=== PATIENT | female | born 1980 | race Caucasian/White ===

== ENCOUNTER 2017-04-07 17:48 | Emergency (ER) | payer MEDICARE, OTHER ==
[~2017-04-07 17:48] MED LIST: ADVAIR 2501 DISK W/D PO; ALBUTEROL17 GM NEB; AMITRYPTYLINE PO; BACTRIM DS TABL1 TAB PO; BACTROBAN22 GM EXT; BENTYL20 MG PO; CLEOCIN150 M1 PO; DOXYCYCLINE PO; FLAGYL PO; KEFLEX500 M1 PO; KLONOPIN1 MG PO; LORTAB 7.5-5001 TAB PO; MEDROL PO; MORPHINE PO; MS CONTIN15 M1 PO; NEURONTIN300 MG PO; NORCO 10-325 TA1 TAB PO; NORCO1 TAB 10/3; NORFLEX100 M1 PO; NORVASC PO; PHENERGAN PO; PROVENTAL INHALER HHN; PROZAC PO; PYRIDIUM PO; TYLENOL #3 PO; VICODIN 5/500 T1 TAB PO; VOLTAREN75 MG PO; WELLBUTRIN75 M1 PO; ZITHROMAX PO
[2017-04-08] MEDS ORDERED: KLONOPIN1 MG PO (03:46)
[2017-04-08] MEDS ORDERED: ALBUTEROL17 GM INH (03:47)
[2017-04-08] MEDS ORDERED: AMLODIPINE BESYL5 MG PO (03:47)
[2017-04-08] MEDS ORDERED: WELLBUTRIN PO (03:47)
[2017-04-08] MEDS ORDERED: LORTAB 5-325 M1 EACH PO (05:38)
== END 2017-04-07 18:39 | disposition left against medical advice (07) ==
LOC: SED 17:48
DX: Z53.21 Procedure and treatment not carried out due to patient leaving prior to being seen by health care provider (principal)

== ENCOUNTER 2017-04-08 03:38 | Emergency (ER) | payer MEDICARE, OTHER ==
[~2017-04-08] VITALS: Ht 167.6 cm; Wt 63.5 kg
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
[2017-04-08] MEDS ORDERED: KLONOPIN1 MG PO (03:46)
[2017-04-08] MEDS ORDERED: WELLBUTRIN PO (03:47)
[2017-04-08] MEDS ORDERED: ALBUTEROL17 GM INH (03:47)
[2017-04-08] MEDS ORDERED: AMLODIPINE BESYL5 MG PO (03:47)
[2017-04-08] MEDS ORDERED: LORTAB 5-325 M1 EACH PO (05:38)
== END 2017-04-08 05:38 | disposition home or self-care (01) ==
LOC: SED 03:38
DX: S92.354A Nondisplaced fracture of fifth metatarsal bone, right foot, initial encounter for closed fracture (principal); S30.0XXA Contusion of lower back and pelvis, initial encounter; F17.200 Nicotine dependence, unspecified, uncomplicated; Y04.2XXA Assault by strike against or bumped into by another person, initial encounter; Y92.9 Unspecified place or not applicable; I10 Essential (primary) hypertension; F41.9 Anxiety disorder, unspecified
CPT/HCPCS: 29515; 72220; 73610; 73630; 99283

== ENCOUNTER 2017-04-21 19:15 | Emergency (ER) | payer MEDICARE, OTHER ==
[~2017-04-21] VITALS: Ht 167.6 cm; Wt 59.0 kg
[~2017-04-21 19:15] MED LIST changes: +ALBUTEROL17 GM INH; +AMLODIPINE BESYL5 MG PO; +LORTAB 5-325 M1 EACH PO; +WELLBUTRIN PO
[2017-04-21] MEDS ORDERED: WELLBUTRIN PO (19:46)
== END 2017-04-21 20:50 | disposition left against medical advice (07) ==
LOC: SED 19:15
DX: Z53.21 Procedure and treatment not carried out due to patient leaving prior to being seen by health care provider (principal)

== ENCOUNTER 2017-04-28 21:26 | Emergency (ER) | payer MEDICARE, OTHER ==
[2017-04-29] MEDS ORDERED: WELLBUTRIN (07:30)
[2017-04-29] MEDS ORDERED: KLONOPIN (07:31)
[2017-04-29] MEDS ORDERED: NORVASC (07:31)
== END 2017-04-28 22:34 | disposition left against medical advice (07) ==
LOC: SED 21:26
DX: Z53.21 Procedure and treatment not carried out due to patient leaving prior to being seen by health care provider (principal)

== ENCOUNTER 2017-04-28 22:15 | Emergency (ER) | payer MEDICARE, OTHER ==
[~2017-04-28] VITALS: Ht 167.6 cm; Wt 56.7 kg
[2017-04-29] MEDS ORDERED: WELLBUTRIN (07:30)
[2017-04-29] MEDS ORDERED: KLONOPIN (07:31)
[2017-04-29] MEDS ORDERED: NORVASC (07:31)
== END 2017-04-29 00:43 | disposition left against medical advice (07) ==
LOC: CED 22:15
DX: Z53.21 Procedure and treatment not carried out due to patient leaving prior to being seen by health care provider (principal)

== ENCOUNTER 2017-04-29 07:25 | Emergency (ER) | payer MEDICARE, OTHER ==
[2017-04-29] MEDS ORDERED: WELLBUTRIN (07:30)
[2017-04-29] MEDS ORDERED: NORVASC (07:31)
[2017-04-29] MEDS ORDERED: KLONOPIN (07:31)
[2017-04-29 07:44] LABS: URINE SOURCE CLEAN CATCH
[2017-04-29 07:46] LABS: URINE APPEARANCE SL CLOUDY; URINE BILIRUBIN NEG (NEG); URINE BLOOD 3+ (NEG); URINE COLOR YELLOW; URINE GLUCOSE NEG (NORM); URINE KETONE NEG (NEG); URINE LEUKOCYTE ESTERASE TRACE (NEG); URINE NITRATE NEG (NEG); URINE PH 5.5 (5-8); URINE PROTEIN 1+ (NEG); URINE SPECIFIC GRAVITY >=1.030 (1.003-1.035); URINE UROBILINOGEN 0.2 MG/DL (NORM)
[2017-04-29 07:52] LABS: MICRO INDICATED? YES
[2017-04-29 07:57] LABS: CULTURE INDICATED? YES; URINE BACTERIA 1+ (NEG); URINE RBC 25-50 /[HPF] (0-2); URINE SQUAMOUS EPITHELIAL CELL MODERATE /[HPF]; URINE TRICHOMONAS PRESENT; URINE WBC 25-50 /[HPF] (0-5)
== END 2017-04-29 08:45 | disposition home or self-care (01) ==
LOC: SED 07:25
PROVIDERS: Emergency Medicine
DX: N39.0 Urinary tract infection, site not specified (principal); A59.9 Trichomoniasis, unspecified; J45.909 Unspecified asthma, uncomplicated; F17.200 Nicotine dependence, unspecified, uncomplicated; Z91.09 Other allergy status, other than to drugs and biological substances
CPT/HCPCS: 81003; 84703; 87086; 96372; 99283; J0696